=== PATIENT | male | born 1960 | race Caucasian/White ===

== ENCOUNTER 2022-11-13 09:52 | Emergency (ER) | payer SELFPAY ==
[~2022-11-13] VITALS: Ht 182.9 cm; Wt 93.8 kg
[2022-11-13 10:03] VITALS: BP 135/62
[2022-11-13 10:30] VITALS: BP 146/68
[2022-11-13 10:38] LABS: BASO% 0.5 % (0-3); EOS% 0.2 % (0-8); IMMATURE GRANULOCYTES 0.2 % (0.0-5.0); LYMPH% 13.5 % (15-41); MEAN CORPUSCULAR HGB 15.8 pG CALC (26.0-32.0); MEAN CORPUSCULAR HGB CONC 25.4 g/dL CAL (32.0-36.0); MONO% 7.5 % (2-13); NEUT# 13.79 thou/uL (1.82-7.42); NEUT% 78.1 % (42-76); RED BLOOD COUNT 4.23 mill/uL (4.70-6.10)
[2022-11-13 10:40] LABS: HEMATOCRIT 26.4 % (39.0-50.0); HEMOGLOBIN 6.7 g/dl (14.0-18.0); MEAN CELL VOLUME 62.4 fL CALC (80.0-100.0)
[2022-11-13 11:00] VITALS: BP 152/69
[2022-11-13 11:02] LABS: ALBUMIN 3.9 g/dL (3.2-5.0); ALKALINE PHOSPHATASE 94 u/l (38-126); ANION GAP 14 (6-22 (CALC)); BILIRUBIN, TOTAL 0.3 mg/dL (0.2-1.3); BUN 13 mg/dL (8-23); BUN/CREATININE RATIO 12 (12-20 (CALC)); CHLORIDE 105 mmol/l (95-108); CREATININE 1.1 mg/dL (0.7-1.3); GFR FOR AFR.AMER. > 60 ML/MIN (>=60 (CALC)); GFR OTHER RACES > 60 ML/MIN (>=60 (CALC)); SGOT/AST 23 u/l (19-48); SODIUM 137 mmol/l (137-146); TOTAL PROTEIN 8.1 g/dL (6.3-8.2)
[2022-11-13 11:18] LABS: CARBON DIOXIDE 22 mmol/l (22-30)
[2022-11-13 11:32] VITALS: BP 156/62
[2022-11-13 12:05] VITALS: BP 156/62
== END 2022-11-13 12:06 | disposition short-term general hospital (02) | DRG 300 ==
LOC: ED 09:52
PROVIDERS: Family Medicine
DX: I73.9 Peripheral vascular disease, unspecified (principal); K92.2 Gastrointestinal hemorrhage, unspecified; D64.9 Anemia, unspecified; Z87.11 Personal history of peptic ulcer disease
CPT/HCPCS: P9016; S0164